=== PATIENT | male | born 2000 | race African-American/Black ===

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

== ENCOUNTER 2023-07-22 12:04 | Emergency (ER) | payer MEDICAID, OTHER ==
[~2023-07-22] VITALS: Ht 180.3 cm; Wt 69.4 kg
[2023-07-22 12:22] VITALS: BP 137/76; PULSE 74; RESP 20; TEMP 98; O2SAT 99
[2023-07-22 14:32] LABS: BASOPHILS % (AUTO) 0.4 % (0.0-2.0); EOSINOPHILS % (AUTO) 1.3 % (0.0-4.0); HEMATOCRIT 43.2 % (36-52); HEMOGLOBIN 14.7 g/dL (12.0-18.0); LYMPHOCYTES # (AUTO) 1.9 K/uL (2.0-11.5); LYMPHOCYTES % (AUTO) 55.1 % (20.5-51.1); MEAN CORPUSCULAR HEMOGLOBIN 30 pg (27-31); MEAN CORPUSCULAR HGB CONC 34 g/dL (33-37); MEAN CORPUSCULAR VOLUME 86.9 fL (80-94); MONOCYTES # (AUTO) 0.2 K/uL (0.8-1.0); MONOCYTES % (AUTO) 7.2 % (1.7-9.3); NEUTROPHILS # (AUTO) 1.2 K/uL (1.8-7.7); PLATELET COUNT (AUTO) 236 K/uL (140-450); RED BLOOD CELL COUNT(AUTO) 4.97 MIL/uL (4.20-6.10); RED CELL DISTRIBUTION WIDTH 12.9 % (11.6-13.7); WHITE BLOOD COUNT (AUTO) 3.4 K/uL (4.8-10.8)
[2023-07-22 14:45] LABS: ALBUMIN 4.6 g/dL (3.4-5.0); ANION GAP 10.8 (8-16); CALCIUM 9.2 mg/dL (8.5-10.1); POTASSIUM 3.8 mmol/L (3.5-5.1); TOTAL BILIRUBIN 0.6 mg/dL (0.0-1.0); TOTAL PROTEIN, SERUM 7.9 g/dL (6.4-8.2)
[2023-07-22] MEDS ORDERED: NACL 0.9% 1,000 ML IV ONE (15:35)
[2023-07-22 15:50] LABS: APPEARANCE,URINE CLEAR (CLEAR); BILIRUBIN,URINE NEGATIVE (NEGATIVE); BLOOD, URINE NEGATIVE (NEGATIVE); COLOR,URINE YELLOW (YELLOW); LEUKOCYTE ESTERASE ,URINE NEGATIVE (NEGATIVE); NITRITE, URINE NEGATIVE (NEGATIVE); PROTEIN,URINE NEGATIVE (NEGATIVE); UGLUCOSE NEGATIVE (NEGATIVE); UROBILINOGEN,URINE 0.2 EU/dL (0.2 - 1)
[2023-07-22] MEDS ORDERED: KETOROLAC 30 MG/ML VIAL IVP ONE (16:00)
[2023-07-22] MEDS ORDERED: ACET-8905 PO (16:05)
[2023-07-22] MEDS ORDERED: ONDA8TAB87 PO (16:05)
[2023-07-22] MEDS ORDERED: IBUP-2213 PO (16:05)
[2023-07-22 16:37] VITALS: BP 135/74; PULSE 72; RESP 20; TEMP 98; O2SAT 99
== END 2023-07-22 16:37 | disposition home or self-care (01) ==
LOC: MED 12:04
DX: R10.31 Right lower quadrant pain (principal); R11.0 Nausea
CPT/HCPCS: 36415; 74177; 80053; 81003; 85025; 96361; 96374; 99285; J1885; J7030; Q9967